=== PATIENT | male | born 1960 | race Caucasian/White ===

== ENCOUNTER → 2018-02-15 09:27 | Outpatient (CLI) | payer BC ==
[~2018-02-15 09:27] MED LIST: ATORVASTATIN TAB 20M; COREG12.5 MG; FENOFIBRATE; FENOGLIDE40 MG PO; HYDRALAZINE HCL50 MG; JANUVIA100 MG; K-DUR20 MEQ; LEVEMIR100 U/M1; LIPITOR20 MG PO; LISINOPRIL TAB 5MG; LISINOPRIL5 MG; LOTREL 10/20 CA1 CAP
[2018-02-26 12:31] VITALS: BMI 36.1
== END | disposition home or self-care (01) ==
LOC: D.US 02-08 10:00
DX: E11.22 Type 2 diabetes mellitus with diabetic chronic kidney disease (principal); I12.9 Hypertensive chronic kidney disease with stage 1 through stage 4 chronic kidney disease, or unspecified chronic kidney disease; N18.4 Chronic kidney disease, stage 4 (severe); Z01.818 Encounter for other preprocedural examination

== ENCOUNTER 2018-02-26 10:34 | Day surgery (SDC) | payer BC ==
[~2018-02-26] VITALS: Ht 170.2 cm; Wt 104.3 kg
--- NOTE | ~2018-02-26 | OP ---
PATIENT NAME: KYLEE WHITE MEDICAL RECORD: [id number] :58 LOCATION:[facility] ADMISSION DATE: SURGEON: SANTANA CUELLO MD DATE OF OPERATION: 02/26/2018 REFERRED BY: Feroz Moffett MD PREOPERATIVE DIAGNOSES: End-stage renal disease. POSTOPERATIVE DIAGNOSES: End-stage renal disease. OPERATION PERFORMED: Creation of a left wrist radiocephalic type Grabiel arterial venous fistula. SURGEON: aSntana Cuello MD ANESTHESIA: Regional block plus general by LMA per CONTROLS TECHNICIAN. PREOPERATIVE NOTE: Mr. White is a very nice 57-year-old white male patient on hemodialysis with a catheter. He needs long-term access. He is a good candidate for a fistula. He is right handed and we plan to create a fistula in the left arm. This will be his first long-term access procedure. DESCRIPTION OF PROCEDURE: Under anesthesia, the patient was prepped and draped in sterile manner. The vasodilatation from his regional block was excellent and I noted immediately a visible palpable cephalic vein at the wrist easily 3.5-4 mm in diameter. I examined him with ultrasound using a proximal venous tourniquet and after applying nitroglycerin paste to the skin of the arm and forearm, the cephalic vein was patent from the wrist to the antecubital space and then up the arm to the cephalic arch. Actually though it drained primarily via a large collateral, drained to the basilic vein at about the mid humeral level. I thought that he would be a good candidate for wrist fistula and possibly rather poor candidate for a brachiocephalic fistula because of the basilic vein and drainage. I made an incision at the wrist longitudinally and exposed the artery and vein. The vein was mobilized and treated with topical papaverine. It was eventually clipped distally and transected and bevelled and flushed with heparinized saline to prepare it for anastomosis. The artery was mobilized with sharp dissection and electrocautery used for hemostasis of very small branches. The artery was controlled proximally and distally with Silastic loops. The artery was opened and flushed proximally and distally with heparinized saline. The arteriotomy about 8 mm in length. The vein was then anastomosed end to side, end of vein to side of artery with running 7-0 Prolene and when the anastomosis was completed and the occluding loops were released, excellent flow was immediately established within the fistula manifested by pulsation and palpable thrill and continuous pulsatile Doppler flow signals. Hemostasis was excellent. The wound was irrigated with Ancef and gentamicin solution. It was closed without the use of a drain approximating subcutaneous tissues with interrupted 3-0 Vicryl and running intracuticular 4-0 Monocryl and Dermabond glue. The wound was dressed with Maxorb Ag, Tegaderm and Cavilon skin prep and the patient taken to the recovery room. OPERATIVE REPORT [id number] KYLEE WHITE Blood loss during the procedure was insignificant and unreplaced. All sponges, instruments, and needles were accounted for. No drain was used. No surgical specimen was submitted for histopathology. PLAN: The patient will be discharged to home this afternoon with a prescription for a small number of Caliente 5/325. He can take one p.o. q.4-6 hours p.r.n. pain. He is to leave the initial operative dressing intact unless it must be changed for some reason. I will plan to take it off when he comes to see me in my office next week. I expect this fistula will mature and that hopefully, he will be able to start having it accessed for dialysis in 6-8 weeks. TRANSINT:[id number] Voice Confirmation ID: [id number] DOCUMENT ID: [id number] SANTANA CUELLO MD at 2012 CC: [id number] DICTATION DATE: 02/26/181718 COATING MACHINE HELPER: 02/26/18 1800 [facility] 02/26/18 [id number] [place] [address]
[2018-02-26 11:29] LABS: BASOPHILS 0.4 % (0-2); EOSINOPHILS 7.2 % (0-7); HEMATOCRIT 31.4 % (42.0-54.0); HEMOGLOBIN 10.1 g/dL (13.5-17.5); IMMATURE GRANULOCYTES 0.1 % (0-5); LYMPHOCYTES 16.6 % (15-50); MCH 28.9 pg (26.0-34.0); MCHC 32.2 g/dL (31.0-37.0); MCV 89.7 fL (80.0-100.0); MEAN PLATELET VOLUME 10.3 fL (7.4-10.4); MONOCYTES 8.1 % (2-11); NEUTROPHILS 67.6 % (40-80); PLATELET COUNT 331 10x3/uL (130-400); RDW 15.5 % (11.5-14.5); WBC 10.2 10x3/uL (4.8-10.8)
[2018-02-26 11:40] LABS: APTT 32.5 SECONDS (22.8-39.4); INR 1.14 (0.85-1.17); PROTIME 14.2 SECONDS (11.6-15.0)
[2018-02-26 11:53] LABS: ANION GAP 15.2 mmol/L (8-16); CARBON DIOXIDE 26.1 mmol/L (21.0-32.0); CREATININE - SERUM 4.4 mg/dL (0.6-1.3); POTASSIUM - SERUM 4.3 mmol/L (3.5-5.1)
[2018-02-26] MEDS ORDERED: LOTREL 10/20 CA1 CAP (12:08)
[2018-02-26] MEDS ORDERED: COREG12.5 MG (12:08)
[2018-02-26] MEDS ORDERED: ATORVASTATIN TAB 20M (12:09)
[2018-02-26] MEDS ORDERED: HYDRALAZINE HCL50 MG (12:10)
[2018-02-26] MEDS ORDERED: K-DUR20 MEQ (12:11)
[2018-02-26] MEDS ORDERED: FENOFIBRATE (12:11)
[2018-02-26] MEDS ORDERED: LEVEMIR100 U/M1 (12:11)
[2018-02-26] MEDS ORDERED: JANUVIA100 MG (12:11)
[2018-02-26] MEDS ORDERED: LISINOPRIL TAB 5MG (12:12)
[2018-02-26] MEDS ORDERED: LIPITOR20 MG PO ×2 (12:13→12:14)
[2018-02-26] MEDS ORDERED: FENOGLIDE40 MG PO (12:15)
[2018-02-26] MEDS ORDERED: LISINOPRIL5 MG (12:16)
[2018-02-26 12:31] VITALS: Ht 170.2 cm; Wt 104.3 kg
== END 2018-02-26 19:10 | disposition home or self-care (01) ==
LOC: D.OPS 10:34
PROVIDERS: Surgery
DX: N18.5 Chronic kidney disease, stage 5 (principal); Z99.2 Dependence on renal dialysis; Z01.812 Encounter for preprocedural laboratory examination

== ENCOUNTER 2018-07-16 00:27 | Inpatient (IN) | payer MEDICARE ==
[~2018-07-16] VITALS: Ht 170.2 cm; Wt 99.0 kg
--- NOTE | ~2018-07-16 | OP ---
PATIENT NAME: KYLEE WHITE MEDICAL RECORD: [id number] :58 LOCATION:D. D.2101 ADMISSION DATE:07/16/18 SURGEON: SANTANA CUELLO MD DATE OF OPERATION: 07/21/2018 PREOPERATIVE DIAGNOSES: End-stage renal disease with methicillin-sensitive Staphylococcus aureus sepsis and positive blood cultures, obstructive sleep apnea, extreme somnolence, possible valvular endocarditis, pulmonary congestion, and fluid overload. POSTOPERATIVE DIAGNOSES: End-stage renal disease with methicillin-sensitive Staphylococcus aureus sepsis and positive blood cultures, obstructive sleep apnea, extreme somnolence, possible valvular endocarditis, pulmonary congestion, and fluid overload. OPERATION PERFORMED: Insertion of a right internal jugular Trialysis acute dialysis catheter done under local anesthesia and with ultrasound and fluoroscopic guidance SAND MIXER was present to help maintain the patient's airway and monitor oxygenation, etc. He administered a very small amount of propofol sedation for the patient at the beginning of the procedure. SURGEON: Santana Cuello MD PREOPERATIVE NOTE: Mr. White is a 57-year-old obese white male patient with end-stage renal disease, who was admitted with methicillin-sensitive Staphylococcus aureus bacteremia and sepsis. Initial improvement in his renal function led to a premature conclusion that he might not require further dialysis and as the tunneled dialysis catheter in the right internal jugular vein was thought to be the source of his sepsis that was removed and not replaced with another dialysis throughout. Over the last several days, the patient's renal function has deteriorated and he needs a reliable IV access as well as dialysis capability. He is brought to the operating room now after several days delay due to OR congestion. I plan to insert a simple Trialysis catheter in the right internal jugular vein. The patient was placed on the operating table in supine position, minimally sedated and monitored, and airway maintained by SAND MIXER. The neck was prepped and draped in sterile manner. Local anesthetic 2% lidocaine without epinephrine was injected into the skin at the base of the neck on the right where ultrasound showed he still has a large patent right internal jugular vein. I made a small incision there at the base of the neck and through that with ultrasound guidance, placed a needle and then a guidewire directly into the internal jugular vein. Under fluoroscopy, the guidewire would not advance into the brachiocephalic vein. It was necessary to use a 0.035 angled Glidewire through the access needle and then I was able to pass the wire into the superior vena cava and on to the right atrium into the inferior vena cava. Then, under fluoroscopy over the wire, I passed dilators and lastly I inserted a 20-cm long Trialysis catheter. All 3 lumens were aspirated, free return of blood confirmed. They were then heparin locked, clamped and capped and the catheter was sutured to the skin at the entry site with 2-0 Prolene. Sterile dressing was applied. The patient was taken to the recovery room. There was no blood loss during the procedure. No specimen was submitted for OPERATIVE REPORT [id number] KYLEE WHITE histopathology. The patient did have a difficult time maintaining his airway and it was difficult to keep him on the table and all in all, this is a difficult procedure and I have realized how ill the patient is, I think that after a period of observation in the recovery room, he should go to ICU this evening. He should have dialysis there in ICU this evening before he goes on for the scheduled pulmonary CTA. He will continue all of the same antibiotics and other medications and other orders per his other physicians. TRANSINT:[id number] Voice Confirmation ID: [id number] DOCUMENT ID: [id number] SANTANA CUELLO MD at 1054 CC: ELISE GRAMAJO [id number] DICTATION DATE: 07/21/181847 [employer]: 07/21/182057 ADM IN [facility] [address] [place] [address]
--- NOTE | ~2018-07-16 | HEMODYNAMI ---
PATIENT:KYLEE WHITE MEDICAL RECORD: [id number] : 58 LOCATION:[facility] D.2101 ADMISSION DATE: 07/16/18 Generatedon:07/28/201813:57 Patient name: KYLEE WHITE Patient #: [id number] SSN: DO B: 1960 Date of study: 07/28/2018 Page: Of Hemodynamic Procedure Report Patient Data Patient Demographics Procedure consent was obtained First Name: KYLEE Gender: Male Last Name: CINDY : 1960 [facility] Initial: P Age: 57 year(s) Patient #: [id number] Race: Unknown Additional ID: [id number] Contact details Address: [address] [place] [address] ST[address]ET State: [place] City: [place] Zip code: [address] Admission Admission Data Admission Date: 07/16/2018 Admission Time: 3:39 Room #: D.2101 Procedure Procedure Types Cath Procedure Diagnostic Procedure ELMER Procedure Description Procedure Date Procedure Date: 07/28/2018 Procedure Start Time: 13:51 Procedure End Time: 13:57 Procedure Staff Name Function Steven Lovell MD Performing Physician Carlos Augustine RT Monitor Cori Rodas RN Nurse Ranjeet Chen RT Clinical Laboratory Director Manas Singh Water Resources Project Manager José Antonio Valdez CRNA Additional personnel Procedure Data Cath Procedure Fluoroscopy Diagnostic fluoroscopy Total fluoroscopy Time: 0 time: 0 min min Diagnostic fluoroscopy Total fluoroscopy dose: 0 dose: 0 mGy mGy Contrast Material Contrast Material Type Amount (ml) Isovue 300 0 Estimated blood loss: 0 ml Procedure Complications No complications Procedure Medications Medication Administration Route Dosage Oxygen etCO2 Nasal cannula 2 l/min unlisted medication Refer to Anesthesia Notes for Sedation Medications Hemodynamics Rest Pre Cath Intra NCS Post Cath Vital Signs Time Heart Resp SPO2 etCO2 NIBP (mmHg) Rhythm Pain Sedation Rate (ipm) (%) (mmHg) Status Level (bpm) 13:41:10 77 14 92 0 175/75(126) NSR 0 (11) 10(A) , No pain 13:45:42 65 14 92 32.3 180/73(125) NSR 0 (11) 10(A) , No pain 13:50:06 65 30 91 0 134/55(102) NSR 0 (11) 9(A) , No pain 13:54:27 65 17 90 30 127/63(86) NSR 0 (11) 9(A) , No pain 13:56:01 59 20 92 27.7 139/61(102) NSR 0 (11) 10(A) , No pain Medications Time Medication Route Dose Verified Delivered Reason Notes Effectiv eness by by 13:45:27 Oxygen etCO2 2 Steven Persaud used for Nasal l/min St Feroz Rodas RN procedure cannula MD 13:46:00 visc. lido gargle Steven Robertson RN, MD 13:46:04 Refer to Steven Persaud Anesthesia St Feroz Rodas RN Notes for MD Sedation Medications Procedure Log Time Note 13:10:44 Carlos Augustine RT(R) sent for patient. Start room use. 13:25:45 Time tracking: Regular hours (M-F 7:00 - 5:00) 13:25:49 Plan of Care:Hemodynamics will remain stable., Cardiac rhythm will remain stable., Comfort level will be maintained., Respiratory function will remain adequate., Patient/ family verbilizes understanding of procedure., Procedure tolerated without complication., Recovers from procedure without complications.. 13:35:10 José Antonio Valdez CRNA present and monitoring patient for TIVA. 13:39:30 Patient received from PCU to CCL 2 Alert and oriented. Tansferred to table in Supine position. 13:39:32 Warm blankets applied, and tess hugger turned on for patient comfort. 13:39:33 Correct patient and procedure confirmed by team. 13:39:46 Signed procedure consent form obtained from patient. 13:39:49 Vital chart was started 13:40:26 Manas [place] Filler Shredder Helper present for ELMER. 13:40:30 Full Disclosure recording started 13:40:40 Pre-procedure instructions explained to patient. 13:40:42 Pre-op teaching completed and patient verbalized understanding. 13:43:53 Family in patients room. 13:43:55 Patient NPO since Midnight. 13:43:57 Is the patient allergic to Iodine/contrast media? No. 13:43:59 Is patient on blood thinner?No 13:44:00 Patient diabetic? Yes. 13:44:01 If diabetic: On Metformin? No 13:44:05 Previous problem with sedation/anesthesia? No ? 13:44:06 Snore? Yes 13:44:07 Sleep apnea? No 13:44:08 Deviated septum? No 13:44:09 Opens mouth fully? Yes 13:44:10 Sticks out tongue? Yes 13:44:12 Airway obstruction? No ? 13:44:13 Dentures? No ? 13:44:22 Patient pain scale 0/10 ?. 13:44:39 IV patent on arrival in Right upper arm with 0.9% NaCl at [facility]. 13:44:42 Lab results completed and on chart. 13:44:44 Alarms reviewed by Perla Poon 13:45:27 Oxygen 2 l/min etCO2 Nasal cannula was administered by Cori Rodas RN; used for procedure; 13:46:00 visc. lido gargle was administered by Cori Rodas RN; ; 13:46:04 Refer to Anesthesia Notes for Sedation Medications was administered by Cori Rodas RN; ; 13:46:32 --------ALL STOP TIME OUT------ 13:46:33 Final Timeout: patient, procedure, and site verified with staff and physician. All members of the team are in agreement. 13:46:43 Physical assessment completed. ASA score P 4 - A patient with severe systemic disease that is a constant threat to life as per Steven Lovell MD. 13:46:47 Sedation plan: TIVA Medication:Propofol 13:47:44 Procedure started. 13:47:45 ELMER started. 13:51:06 ELMER completed. 13:51:44 Procedure ended.(Physican Out) 13:52:20 Fluoroscopy time 00.00 minutes. 13:52:21 Fluoroscopy dose: 0 mGy 13:52:21 Flurop Dose total: 0 13:52:23 Contrast amount:Isovue 300 0ml. 13:52:50 Post-procedure physical assessment completed. ASA score P 4 - A patient with severe systemic disease that is a constant threat to life as per Steven Lovell MD. 13:53:02 Post procedure rhythm: unchanged. 13:53:04 Estimated blood loss: 0 ml 13:53:06 Post procedure instruction explained to patient.Patient verbalizes understanding. 13:53:07 Patient needs reinforcement of post procedure teaching. 13:53:14 Procedure and supply charges have been captured, reviewed, submitted and are correct. 13:53:17 Procedure Complication : No complications 13:56:58 Vital chart was stopped 13:56:59 See physician's report for complete and final results. 13:57:01 Report given to PCU. 13:57:04 Patient transfered to PCU with Bed. 13:57:06 Procedure ended. 13:57:06 Full Disclosure recording stopped 13:57:09 End room use (Document Last) Signature Audit [place] Stage Time Signature Unsigned Intra-Procedure 07/28/2018 Carlos Augustine 1:57:27 PM RT(R) Signatures Monitor : Carlos Augustine RT Signature : Date : Time : [address] [address]
--- NOTE | ~2018-07-16 | OP ---
PATIENT NAME: KYLEE WHITE MEDICAL RECORD: [id number] :58 LOCATION:D. D.2101 ADMISSION DATE:07/16/18 SURGEON: SANTANA CUELLO MD DATE OF OPERATION: 08/03/2018 PREOPERATIVE DIAGNOSES: End-stage renal disease and dependence on hemodialysis with recent bacteremia and development of acute bacterial endocarditis with methicillin-sensitive Staphylococcus aureus and more recently prolonged oozing and bleeding from Trialysis catheter insertion site in the right internal jugular vein. POSTOPERATIVE DIAGNOSES: End-stage renal disease and dependence on hemodialysis with recent bacteremia and development of acute bacterial endocarditis with methicillin-sensitive Staphylococcus aureus and more recently prolonged oozing and bleeding from Trialysis catheter insertion site in the right internal jugular vein. OPERATION PERFORMED: Removal of Trialysis and insertion of a right internal jugular HemoSplit tunneled dialysis catheter, HemoSplit 23 cm in length. SURGEON: Santana Cuello MD ANESTHESIA: Monitoring per SOLID WASTE FACILITY SUPERVISOR and local 2% lidocaine without epinephrine. PREOPERATIVE NOTE: Mr. Daileys bacteremia has cleared and we are now going to remove the Trialysis catheter, which has been problematic and place a new HemoSplit. He remains on scheduled antibiotic therapy and will be for the next month or so. DESCRIPTION OF PROCEDURE: The patient was prepped and draped in sterile manner and local anesthetic infiltrated into the skin and subcutaneous tissues as needed. The Trialysis catheter site was cleansed and anesthetized and the incision extended medially and laterally after which the Trialysis catheter was removed over a guidewire and under fluoroscopy the guidewire was placed in the inferior vena cava. Over that, I inserted a dilator peel-away sheath. I made an entry site for the HemoSplit catheter beneath the clavicle and pulled the 23-cm HemoSplit through a subcutaneous tunnel and inserted it through the peelaway sheath as it was removed. The catheter positioning was very satisfactory. Both lumens were accessed and aspirated, free return of blood confirmed. They were then flushed with heparin and saline solution and then hep-locked. The catheter was sutured to the skin near the exit site with 2-0 Prolene. In order to prevent postoperative oozing and bleeding for the first few days, I placed a simple 4-0 Prolene suture to snug up and close the exit site around the catheter. It was very important that this suture be removed and not allowed to remain indefinitely and cause tissue necrosis. I also placed 2 simple 4-0 Prolene sutures to close the cervical incision after an inverted 3-0 Vicryl. Again, this was in hopes of maintaining good hemostasis and these 2 Prolene sutures need to be removed in the next 5 to 7 days. The exit site was dressed with a chlorhexidine Biopatch and a standard CVL dressing, and the skin incision was dressed with Maxorb AG and Tegaderm with Cavilon skin prep. TRANSINT:[id number] Voice Confirmation ID: [id number] DOCUMENT ID: [id number] OPERATIVE REPORT [id number] KYLEE WHITE JAMES MD at 1753 CC: ELISE GRAMAJO and SHARA BROWN MD [id number] DICTATION DATE: 08/03/18 0957 COMPUTER ASSEMBLER: 08/03/18 1022 DIS IN 08/05/18 [facility] [address] [place] [address]
--- NOTE | ~2018-07-16 | OP ---
PATIENT NAME: KYLEE WHITE MEDICAL RECORD: [id number] :58 LOCATION:D.M2 D.2101 ADMISSION DATE:07/16/18 SURGEON: RAIN LAIRD MD DATE OF OPERATION: 07/28/2018 After general sedation via anesthesia via TIVA, a transesophageal Omniplane probe placed into the esophagus and proximal stomach without difficulty. FINDINGS: LVH is present. LV internal dimension is normal, wall motion normal. EF is greater than or equal to 55%. The aortic valve is tricuspid with previously described vegetation. This appears to be organized in an appropriate fashion. No significant AI is noted. No evidence of perivalvular abnormalities noted. Left atrium appears normal. Mitral valve appears normal with trivial MR only. Right-sided chambers were grossly normal. Trivial tricuspid regurgitation only. TRANSINT:[id number] Voice Confirmation ID: [id number] DOCUMENT ID: [id number] RAIN LAIRD MD at 0843 CC: [id number] DICTATION DATE: 07/28/18 1357 INSPECTOR AND MENDER: 07/28/18 1411 DIS IN 08/05/18 [facility] [address] [place] [address]
[~2018-07-16 00:27] MED LIST changes: -COREG12.5 MG; +COREG12.5 MG PO; -HYDRALAZINE HCL50 MG; +HYDRALAZINE HCL50 MG PO; -JANUVIA100 MG; +JANUVIA100 MG PO; -K-DUR20 MEQ; +K-DUR20 MEQ PO; -LEVEMIR100 U/M1; +LEVEMIR100 U/M1 SC; -LOTREL 10/20 CA1 CAP; +LOTREL 10/20 CA1 CAP PO
[2018-07-16] MEDS ORDERED: LIPITOR20 MG PO (03:56)
[2018-07-16] MEDS ORDERED: ASPIRIN325 MG PO (04:00)
[2018-07-16] MEDS ORDERED: FISH OIL 1,2001 CAP PO (04:01)
[2018-07-16] MEDS ORDERED: HUMALOG 30100 UNITS/ SC (04:02)
[2018-07-16 05:46] VITALS: BP 168/68
[2018-07-16 05:57] VITALS: BP 168/68; BMI 35.3
[2018-07-16 08:22] VITALS: BP 150/75
[2018-07-16 08:56] LABS: ANION GAP 11.1 mmol/L (8-16); CARBON DIOXIDE 29.6 mmol/L (21.0-32.0); CREATININE - SERUM 4.5 mg/dL (0.6-1.3); POTASSIUM - SERUM 3.7 mmol/L (3.5-5.1)
[2018-07-16 09:00] LABS: BASOPHILS 0.2 % (0-2); EOSINOPHILS 0.1 % (0-7); HEMATOCRIT 27.6 % (42.0-54.0); HEMOGLOBIN 8.9 g/dL (13.5-17.5); IMMATURE GRANULOCYTES 0.4 % (0-5); MCH 29.6 pg (26.0-34.0); MCHC 32.2 g/dL (31.0-37.0); MCV 91.7 fL (80.0-100.0); MEAN PLATELET VOLUME 10.8 fL (7.4-10.4); MONOCYTES 5.8 % (2-11); NEUTROPHILS 89.5 % (40-80); RBC 3.01 10x6/uL (4.20-6.10); RDW 14.6 % (11.5-14.5)
[2018-07-16 09:01] LABS: PLATELET COUNT 161 10x3/uL (130-400)
[2018-07-16 11:04] VITALS: BP 101/49
[2018-07-16 11:22] VITALS: Ht 170.2 cm; Wt 99.0 kg
[2018-07-16 14:31] VITALS: BP 106/48
[2018-07-16 20:54] VITALS: BP 117/55
[2018-07-16 22:52] LABS: BASOPHILS 0.1 % (0-2); EOSINOPHILS 0 % (0-7); HEMATOCRIT 27.2 % (42.0-54.0); IMMATURE GRANULOCYTES 1.7 % (0-5); LYMPHOCYTES 5.9 % (15-50); MCH 30.2 pg (26.0-34.0); MCHC 33.1 g/dL (31.0-37.0); MCV 91.3 fL (80.0-100.0); MEAN PLATELET VOLUME 10.8 fL (7.4-10.4); MONOCYTES 6.7 % (2-11); NEUTROPHILS 85.6 % (40-80); PLATELET COUNT 151 10x3/uL (130-400); RBC 2.98 10x6/uL (4.20-6.10); RDW 14.6 % (11.5-14.5)
[2018-07-17 01:12] VITALS: BP 93/43
[2018-07-17 05:57] VITALS: BP 106/61
[2018-07-17 07:05] LABS: BASOPHILS 0.1 % (0-2); EOSINOPHILS 0.1 % (0-7); HEMATOCRIT 25.1 % (42.0-54.0); HEMOGLOBIN 8.3 g/dL (13.5-17.5); IMMATURE GRANULOCYTES 0.5 % (0-5); LYMPHOCYTES 5.6 % (15-50); MCH 30.2 pg (26.0-34.0); MCHC 33.1 g/dL (31.0-37.0); MCV 91.3 fL (80.0-100.0); MEAN PLATELET VOLUME 10.9 fL (7.4-10.4); MONOCYTES 6.8 % (2-11); NEUTROPHILS 86.9 % (40-80); PLATELET COUNT 142 10x3/uL (130-400); RBC 2.75 10x6/uL (4.20-6.10); RDW 14.9 % (11.5-14.5)
[2018-07-17 07:23] LABS: ANION GAP 12.9 mmol/L (8-16); CALCIUM 7.8 mg/dL (8.5-10.1); CARBON DIOXIDE 27.9 mmol/L (21.0-32.0); CREATININE - SERUM 5.8 mg/dL (0.6-1.3); PHOSPHOROUS 5.7 mg/dL (2.5-4.9); POTASSIUM - SERUM 3.8 mmol/L (3.5-5.1); VANCOMYCIN - RANDOM 15.9 ug/mL (10.0-20.0); WBC 10.9 10x3/uL (4.8-10.8)
[2018-07-17 08:03] VITALS: BP 114/68
[2018-07-17 08:58] VITALS: BP 155/61
[2018-07-17 16:24] LABS: CREATININE - URINE 162.8 mg/dL (30-125)
[2018-07-17 17:29] VITALS: BP 107/59
[2018-07-17 19:58] VITALS: BP 125/68
[2018-07-18 00:39] VITALS: BP 130/62
[2018-07-18 05:20] VITALS: BP 125/59
[2018-07-18 06:00] LABS: BASOPHILS 0.2 % (0-2); EOSINOPHILS 0.1 % (0-7); HEMATOCRIT 25.8 % (42.0-54.0); HEMOGLOBIN 8.4 g/dL (13.5-17.5); IMMATURE GRANULOCYTES 0.9 % (0-5); LYMPHOCYTES 7.6 % (15-50); MCH 29.4 pg (26.0-34.0); MCHC 32.6 g/dL (31.0-37.0); MCV 90.2 fL (80.0-100.0); MONOCYTES 6.8 % (2-11); NEUTROPHILS 84.4 % (40-80); PLATELET COUNT 132 10x3/uL (130-400); RBC 2.86 10x6/uL (4.20-6.10); RDW 14.8 % (11.5-14.5); WBC 12.1 10x3/uL (4.8-10.8)
[2018-07-18 06:18] LABS: ANION GAP 14.5 mmol/L (8-16); CALCIUM 7.7 mg/dL (8.5-10.1); CARBON DIOXIDE 24.1 mmol/L (21.0-32.0); CREATININE - SERUM 5.9 mg/dL (0.6-1.3); PHOSPHOROUS 5.2 mg/dL (2.5-4.9); POTASSIUM - SERUM 3.6 mmol/L (3.5-5.1); VANCOMYCIN - RANDOM 12.7 ug/mL (10.0-20.0)
[2018-07-18 08:47] VITALS: BP 149/62
[2018-07-18 12:50] VITALS: BP 134/56; BP 177/63
[2018-07-18 16:13] VITALS: BP 108/50
[2018-07-18 20:46] VITALS: BP 113/44
[2018-07-19 01:19] VITALS: BP 116/45
[2018-07-19 04:04] LABS: BASOPHILS 0.1 % (0-2); EOSINOPHILS 0.2 % (0-7); HEMATOCRIT 24.7 % (42.0-54.0); HEMOGLOBIN 8.2 g/dL (13.5-17.5); IMMATURE GRANULOCYTES 0.6 % (0-5); LYMPHOCYTES 5.8 % (15-50); MCH 29.6 pg (26.0-34.0); MCHC 33.2 g/dL (31.0-37.0); MCV 89.2 fL (80.0-100.0); MEAN PLATELET VOLUME 10.9 fL (7.4-10.4); MONOCYTES 7.9 % (2-11); NEUTROPHILS 85.4 % (40-80); PLATELET COUNT 145 10x3/uL (130-400); RBC 2.77 10x6/uL (4.20-6.10); RDW 14.8 % (11.5-14.5); WBC 13.5 10x3/uL (4.8-10.8)
[2018-07-19 04:48] LABS: ANION GAP 14.1 mmol/L (8-16); CALCIUM 7.6 mg/dL (8.5-10.1); CARBON DIOXIDE 23.5 mmol/L (21.0-32.0); CREATININE - SERUM 5.8 mg/dL (0.6-1.3); PHOSPHOROUS 5.6 mg/dL (2.5-4.9); POTASSIUM - SERUM 3.6 mmol/L (3.5-5.1); VANCOMYCIN - RANDOM 18.2 ug/mL (10.0-20.0)
[2018-07-19 05:05] VITALS: BP 125/55
[2018-07-19 11:41] VITALS: BP 126/55
[2018-07-19 15:47] VITALS: BP 133/69
[2018-07-19 21:28] VITALS: BP 134/64
[2018-07-20 05:29] VITALS: BP 118/59
[2018-07-20 07:07] LABS: BASOPHILS 0.1 % (0-2); EOSINOPHILS 0.8 % (0-7); HEMATOCRIT 24.4 % (42.0-54.0); HEMOGLOBIN 8.2 g/dL (13.5-17.5); LYMPHOCYTES 6.5 % (15-50); MCH 29.6 pg (26.0-34.0); MCHC 33.6 g/dL (31.0-37.0); MCV 88.1 fL (80.0-100.0); MEAN PLATELET VOLUME 11.4 fL (7.4-10.4); NEUTROPHILS 81.6 % (40-80); PLATELET COUNT 167 10x3/uL (130-400); RBC 2.77 10x6/uL (4.20-6.10); RDW 14.6 % (11.5-14.5); WBC 10.2 10x3/uL (4.8-10.8)
[2018-07-20 07:13] LABS: CALCIUM 7.4 mg/dL (8.5-10.1); CARBON DIOXIDE 22.2 mmol/L (21.0-32.0); CREATININE - SERUM 5.7 mg/dL (0.6-1.3); PHOSPHOROUS 4.6 mg/dL (2.5-4.9); POTASSIUM - SERUM 3.2 mmol/L (3.5-5.1); VANCOMYCIN - RANDOM 13.3 ug/mL (10.0-20.0)
[2018-07-20 13:06] VITALS: BP 131/61
[2018-07-20 20:33] VITALS: BP 149/67
[2018-07-21 05:38] VITALS: BP 131/57
[2018-07-21 05:53] LABS: BASOPHILS 0.2 % (0-2); EOSINOPHILS 1.4 % (0-7); HEMATOCRIT 24.1 % (42.0-54.0); HEMOGLOBIN 8.3 g/dL (13.5-17.5); IMMATURE GRANULOCYTES 1.4 % (0-5); LYMPHOCYTES 7.2 % (15-50); MCH 29.5 pg (26.0-34.0); MCHC 34.4 g/dL (31.0-37.0); MONOCYTES 13.7 % (2-11); NEUTROPHILS 76.1 % (40-80); RBC 2.81 10x6/uL (4.20-6.10); RDW 14.8 % (11.5-14.5); WBC 12.4 10x3/uL (4.8-10.8)
[2018-07-21 06:13] LABS: ANION GAP 14.7 mmol/L (8-16); CALCIUM 7.6 mg/dL (8.5-10.1); CARBON DIOXIDE 21.2 mmol/L (21.0-32.0); CREATININE - SERUM 6.2 mg/dL (0.6-1.3); PHOSPHOROUS 5.3 mg/dL (2.5-4.9); VANCOMYCIN - RANDOM 11.1 ug/mL (10.0-20.0)
[2018-07-21 06:15] LABS: POTASSIUM - SERUM 2.9 mmol/L (3.5-5.1)
[2018-07-21 06:16] LABS: MCV 85.8 fL (80.0-100.0); PLATELET COUNT 217 10x3/uL (130-400)
[2018-07-21 14:48] VITALS: BP 127/68
[2018-07-21 20:00] VITALS: BP 170/89
[2018-07-21 21:00] VITALS: BP 125/69
[2018-07-21 22:00] VITALS: BP 130/81
[2018-07-21 23:00] VITALS: BP 136/76
[2018-07-22] VITALS (22 sets, daily range): BP systolic 114–168; BP diastolic 61–86
[2018-07-22 00:44] LABS: ANION GAP 13.3 mmol/L (8-16); CALCIUM 8.1 mg/dL (8.5-10.1); CARBON DIOXIDE 25.9 mmol/L (21.0-32.0); POTASSIUM - SERUM 3.2 mmol/L (3.5-5.1)
[2018-07-22 00:46] LABS: CREATININE - SERUM 4.3 mg/dL (0.6-1.3)
[2018-07-22 05:32] LABS: BASOPHILS 0.2 % (0-2); EOSINOPHILS 0.4 % (0-7); HEMATOCRIT 23.5 % (42.0-54.0); IMMATURE GRANULOCYTES 0.9 % (0-5); LYMPHOCYTES 9.2 % (15-50); MCH 29.4 pg (26.0-34.0); MCV 86.4 fL (80.0-100.0); MEAN PLATELET VOLUME 10.4 fL (7.4-10.4); MONOCYTES 6.8 % (2-11); NEUTROPHILS 82.5 % (40-80); PLATELET COUNT 260 10x3/uL (130-400); RBC 2.72 10x6/uL (4.20-6.10)
[2018-07-22 05:34] LABS: WBC 16.7 10x3/uL (4.8-10.8)
[2018-07-22 05:39] LABS: ALBUMIN 1.7 g/dL (3.4-5.0); ANION GAP 14.8 mmol/L (8-16); BILIRUBIN - TOTAL 1.25 mg/dL (0.2-1.3); CALCIUM 7.9 mg/dL (8.5-10.1); CARBON DIOXIDE 24.6 mmol/L (21.0-32.0); CREATININE - SERUM 4.8 mg/dL (0.6-1.3); POTASSIUM - SERUM 3.4 mmol/L (3.5-5.1); PROTEIN - SERUM 6.9 g/dL (6.4-8.2); VANCOMYCIN - RANDOM 7.6 ug/mL (10.0-20.0)
[2018-07-23] VITALS (17 sets, daily range): BP systolic 134–187; BP diastolic 62–89
[2018-07-23 04:15] LABS: BASOPHILS 0.1 % (0-2); EOSINOPHILS 1.9 % (0-7); HEMOGLOBIN 7.8 g/dL (13.5-17.5); IMMATURE GRANULOCYTES 1.3 % (0-5); LYMPHOCYTES 6.3 % (15-50); MCH 29.7 pg (26.0-34.0); MCHC 33.9 g/dL (31.0-37.0); MCV 87.5 fL (80.0-100.0); MEAN PLATELET VOLUME 9.7 fL (7.4-10.4); MONOCYTES 8.5 % (2-11); NEUTROPHILS 81.9 % (40-80); PLATELET COUNT 222 10x3/uL (130-400); RBC 2.63 10x6/uL (4.20-6.10); RDW 15.1 % (11.5-14.5); WBC 15.8 10x3/uL (4.8-10.8)
[2018-07-23 04:36] LABS: ALBUMIN 1.7 g/dL (3.4-5.0); BILIRUBIN - TOTAL 0.96 mg/dL (0.2-1.3); CALCIUM 7.5 mg/dL (8.5-10.1); CARBON DIOXIDE 30.2 mmol/L (21.0-32.0); CREATININE - SERUM 3.9 mg/dL (0.6-1.3); MAGNESIUM - SERUM 2.6 mg/dL (1.8-2.4); PHOSPHOROUS 4.6 mg/dL (2.5-4.9); POTASSIUM - SERUM 3.2 mmol/L (3.5-5.1); PROTEIN - SERUM 6.8 g/dL (6.4-8.2)
[2018-07-23 18:01] LABS: INR 1.21 (0.85-1.17); PROTIME 14.9 SECONDS (11.6-15.0)
[2018-07-24 01:25] VITALS: BP 143/60
[2018-07-24 05:03] VITALS: BP 138/69
[2018-07-24 05:52] LABS: BASOPHILS 0.1 % (0-2); EOSINOPHILS 2.4 % (0-7); IMMATURE GRANULOCYTES 1.4 % (0-5); LYMPHOCYTES 7.3 % (15-50); MCHC 32.3 g/dL (31.0-37.0); MEAN PLATELET VOLUME 10.4 fL (7.4-10.4); MONOCYTES 9.3 % (2-11); NEUTROPHILS 79.5 % (40-80); PLATELET COUNT 239 10x3/uL (130-400); RBC 2.45 10x6/uL (4.20-6.10); RDW 15.5 % (11.5-14.5); WBC 15.3 10x3/uL (4.8-10.8)
[2018-07-24 05:56] LABS: HEMOGLOBIN 7.1 g/dL (13.5-17.5); MCV 89.8 fL (80.0-100.0)
[2018-07-24 06:56] LABS: ALBUMIN 1.7 g/dL (3.4-5.0); ANION GAP 13.3 mmol/L (8-16); BILIRUBIN - TOTAL 1.08 mg/dL (0.2-1.3); CALCIUM 7.4 mg/dL (8.5-10.1); CARBON DIOXIDE 26.3 mmol/L (21.0-32.0); CREATININE - SERUM 3.9 mg/dL (0.6-1.3); MAGNESIUM - SERUM 2.7 mg/dL (1.8-2.4); POTASSIUM - SERUM 3.6 mmol/L (3.5-5.1); PROTEIN - SERUM 6.4 g/dL (6.4-8.2)
[2018-07-24 07:00] LABS: INR 1.08 (0.85-1.17); PROTIME 13.6 SECONDS (11.6-15.0)
[2018-07-24 08:41] VITALS: BP 150/62
[2018-07-24 12:39] VITALS: BP 146/70
[2018-07-24 20:01] VITALS: BP 139/68
[2018-07-25 00:45] VITALS: BP 146/69
[2018-07-25 05:40] VITALS: BP 153/67
[2018-07-25 05:44] LABS: BASOPHILS 0.1 % (0-2); EOSINOPHILS 2.2 % (0-7); HEMOGLOBIN 8.6 g/dL (13.5-17.5); IMMATURE GRANULOCYTES 0.8 % (0-5); LYMPHOCYTES 7.3 % (15-50); MCH 29.4 pg (26.0-34.0); MCHC 33.1 g/dL (31.0-37.0); MCV 88.7 fL (80.0-100.0); MEAN PLATELET VOLUME 10.7 fL (7.4-10.4); MONOCYTES 10.8 % (2-11); NEUTROPHILS 78.8 % (40-80); PLATELET COUNT 224 10x3/uL (130-400); RBC 2.93 10x6/uL (4.20-6.10); RDW 15.3 % (11.5-14.5); WBC 15.9 10x3/uL (4.8-10.8)
[2018-07-25 06:39] LABS: ALBUMIN 1.8 g/dL (3.4-5.0); ANION GAP 9.9 mmol/L (8-16); CALCIUM 7.3 mg/dL (8.5-10.1); CARBON DIOXIDE 31.5 mmol/L (21.0-32.0); CREATININE - SERUM 3.1 mg/dL (0.6-1.3); POTASSIUM - SERUM 3.4 mmol/L (3.5-5.1); PROTEIN - SERUM 6.7 g/dL (6.4-8.2)
[2018-07-25 08:04] VITALS: BP 207/80
[2018-07-25 11:31] VITALS: BP 190/67
[2018-07-25 16:12] VITALS: BP 201/82
[2018-07-25 20:38] VITALS: BP 168/79
[2018-07-26 01:31] VITALS: BP 165/71
[2018-07-26 04:52] LABS: BASOPHILS 0.1 % (0-2); EOSINOPHILS 0.9 % (0-7); HEMATOCRIT 24.3 % (42.0-54.0); HEMOGLOBIN 8.2 g/dL (13.5-17.5); IMMATURE GRANULOCYTES 0.8 % (0-5); LYMPHOCYTES 11.1 % (15-50); MCHC 33.7 g/dL (31.0-37.0); MEAN PLATELET VOLUME 9.7 fL (7.4-10.4); MONOCYTES 5.1 % (2-11); PLATELET COUNT 195 10x3/uL (130-400); RBC 2.73 10x6/uL (4.20-6.10); RDW 15.3 % (11.5-14.5)
[2018-07-26 05:09] LABS: ALBUMIN 1.6 g/dL (3.4-5.0); ANION GAP 8.1 mmol/L (8-16); BILIRUBIN - TOTAL 1.14 mg/dL (0.2-1.3); CALCIUM 7.8 mg/dL (8.5-10.1); CARBON DIOXIDE 31.5 mmol/L (21.0-32.0); CREATININE - SERUM 3.4 mg/dL (0.6-1.3); PHOSPHOROUS 5.3 mg/dL (2.5-4.9); POTASSIUM - SERUM 3.6 mmol/L (3.5-5.1); PROTEIN - SERUM 7.1 g/dL (6.4-8.2)
[2018-07-26 06:12] VITALS: BP 189/72
[2018-07-26 07:50] VITALS: BP 147/71
[2018-07-26 11:06] VITALS: BP 160/74
[2018-07-26 16:09] VITALS: BP 123/81
[2018-07-26 20:00] VITALS: BP 159/61
[2018-07-27] VITALS: BP 199/83
[2018-07-27 04:00] VITALS: BP 142/64
[2018-07-27 04:37] LABS: BASOPHILS 0.1 % (0-2); EOSINOPHILS 1.4 % (0-7); HEMATOCRIT 24.2 % (42.0-54.0); HEMOGLOBIN 7.8 g/dL (13.5-17.5); IMMATURE GRANULOCYTES 0.6 % (0-5); LYMPHOCYTES 10.4 % (15-50); MCH 29.1 pg (26.0-34.0); MCHC 32.2 g/dL (31.0-37.0); MCV 90.3 fL (80.0-100.0); MEAN PLATELET VOLUME 10.3 fL (7.4-10.4); MONOCYTES 7.9 % (2-11); NEUTROPHILS 79.6 % (40-80); PLATELET COUNT 227 10x3/uL (130-400); RBC 2.68 10x6/uL (4.20-6.10); RDW 15.3 % (11.5-14.5); WBC 15.2 10x3/uL (4.8-10.8)
[2018-07-27 04:56] LABS: ALBUMIN 1.6 g/dL (3.4-5.0); ANION GAP 11.5 mmol/L (8-16); CARBON DIOXIDE 29.4 mmol/L (21.0-32.0); CREATININE - SERUM 3.5 mg/dL (0.6-1.3); POTASSIUM - SERUM 3.9 mmol/L (3.5-5.1); PROTEIN - SERUM 7.2 g/dL (6.4-8.2)
[2018-07-27 08:57] VITALS: BP 139/66
[2018-07-27 15:19] VITALS: BP 120/60
[2018-07-27 20:00] VITALS: BP 135/71
[2018-07-28] VITALS: BP 139/58
[2018-07-28 04:00] VITALS: BP 174/77
[2018-07-28 07:06] LABS: BASOPHILS 0.2 % (0-2); EOSINOPHILS 1.5 % (0-7); HEMATOCRIT 22.6 % (42.0-54.0); IMMATURE GRANULOCYTES 0.5 % (0-5); LYMPHOCYTES 8.5 % (15-50); MCH 29.7 pg (26.0-34.0); MCHC 32.7 g/dL (31.0-37.0); MCV 90.8 fL (80.0-100.0); MEAN PLATELET VOLUME 10.2 fL (7.4-10.4); MONOCYTES 14.7 % (2-11); NEUTROPHILS 74.6 % (40-80); PLATELET COUNT 251 10x3/uL (130-400); RBC 2.49 10x6/uL (4.20-6.10); WBC 12.8 10x3/uL (4.8-10.8)
[2018-07-28 07:11] LABS: HEMOGLOBIN 7.4 g/dL (13.5-17.5)
[2018-07-28 07:39] LABS: ALBUMIN 1.6 g/dL (3.4-5.0); ANION GAP 11.3 mmol/L (8-16); BILIRUBIN - TOTAL 0.9 mg/dL (0.2-1.3); CALCIUM 7.9 mg/dL (8.5-10.1); CARBON DIOXIDE 29.3 mmol/L (21.0-32.0); CREATININE - SERUM 3.5 mg/dL (0.6-1.3); PHOSPHOROUS 5.1 mg/dL (2.5-4.9); POTASSIUM - SERUM 3.6 mmol/L (3.5-5.1); PROTEIN - SERUM 7.5 g/dL (6.4-8.2)
[2018-07-28 08:11] VITALS: BP 145/71
[2018-07-28 11:50] VITALS: BP 156/68
[2018-07-28 15:05] VITALS: BP 145/74
[2018-07-28 20:00] VITALS: BP 165/73
[2018-07-29 04:00] VITALS: BP 191/86
[2018-07-29 06:02] LABS: BASOPHILS 0.2 % (0-2); EOSINOPHILS 1.3 % (0-7); HEMATOCRIT 25.3 % (42.0-54.0); HEMOGLOBIN 8.1 g/dL (13.5-17.5); IMMATURE GRANULOCYTES 0.8 % (0-5); LYMPHOCYTES 8.4 % (15-50); MCV 90.7 fL (80.0-100.0); MEAN PLATELET VOLUME 10.3 fL (7.4-10.4); MONOCYTES 15.9 % (2-11); NEUTROPHILS 73.4 % (40-80); PLATELET COUNT 251 10x3/uL (130-400); RBC 2.79 10x6/uL (4.20-6.10); RDW 14.7 % (11.5-14.5); WBC 10.3 10x3/uL (4.8-10.8)
[2018-07-29 06:20] LABS: ALBUMIN 1.6 g/dL (3.4-5.0); BILIRUBIN - TOTAL 0.88 mg/dL (0.2-1.3); CALCIUM 8.1 mg/dL (8.5-10.1); CARBON DIOXIDE 27.7 mmol/L (21.0-32.0); CREATININE - SERUM 3.7 mg/dL (0.6-1.3); POTASSIUM - SERUM 3.7 mmol/L (3.5-5.1); PROTEIN - SERUM 7.4 g/dL (6.4-8.2)
[2018-07-29 08:19] VITALS: BP 135/98
[2018-07-29 15:22] VITALS: BP 169/75
[2018-07-29 20:00] VITALS: BP 111/66
[2018-07-30 04:00] VITALS: BP 130/66
[2018-07-30 06:44] LABS: ALBUMIN 1.6 g/dL (3.4-5.0); ANION GAP 12.5 mmol/L (8-16); BILIRUBIN - TOTAL 0.89 mg/dL (0.2-1.3); CALCIUM 8.5 mg/dL (8.5-10.1); CARBON DIOXIDE 28.4 mmol/L (21.0-32.0); CREATININE - SERUM 3.8 mg/dL (0.6-1.3); PHOSPHOROUS 5.7 mg/dL (2.5-4.9); POTASSIUM - SERUM 3.9 mmol/L (3.5-5.1); PROTEIN - SERUM 7.7 g/dL (6.4-8.2)
[2018-07-30 07:25] LABS: HEMOGLOBIN 7.9 g/dL (13.5-17.5); LYMPHOCYTES 11.6 % (15-50); MCH 30.2 pg (26.0-34.0); MCHC 32.9 g/dL (31.0-37.0); MCV 91.6 fL (80.0-100.0); NEUTROPHILS 71.1 % (40-80); PLATELET COUNT 275 10x3/uL (130-400); RBC 2.62 10x6/uL (4.20-6.10); RDW 14.4 % (11.5-14.5)
[2018-07-30 09:30] VITALS: BP 124/67
[2018-07-30 12:56] VITALS: BP 136/70
[2018-07-30 14:01] LABS: APTT 40.2 SECONDS (22.8-39.4); INR 1.24 (0.85-1.17); PROTIME 15.2 SECONDS (11.6-15.0)
[2018-07-30 20:39] VITALS: BP 141/51
[2018-07-31 04:00] VITALS: BP 138/58
[2018-07-31 05:52] LABS: BASOPHILS 0.3 % (0-2); EOSINOPHILS 1.1 % (0-7); HEMATOCRIT 21.6 % (42.0-54.0); IMMATURE GRANULOCYTES 0.3 % (0-5); LYMPHOCYTES 10.9 % (15-50); MCH 29.8 pg (26.0-34.0); MCHC 32.4 g/dL (31.0-37.0); MCV 91.9 fL (80.0-100.0); MEAN PLATELET VOLUME 9.1 fL (7.4-10.4); MONOCYTES 13.4 % (2-11); PLATELET COUNT 243 10x3/uL (130-400); RBC 2.35 10x6/uL (4.20-6.10); RDW 14.8 % (11.5-14.5); WBC 10.6 10x3/uL (4.8-10.8)
[2018-07-31 07:45] VITALS: BP 130/72
[2018-07-31 08:00] LABS: ALBUMIN 1.6 g/dL (3.4-5.0); ANION GAP 13.8 mmol/L (8-16); BILIRUBIN - TOTAL 0.75 mg/dL (0.2-1.3); CALCIUM 8.1 mg/dL (8.5-10.1); CARBON DIOXIDE 25.7 mmol/L (21.0-32.0); CREATININE - SERUM 4.3 mg/dL (0.6-1.3); POTASSIUM - SERUM 3.5 mmol/L (3.5-5.1); PROTEIN - SERUM 7.4 g/dL (6.4-8.2)
[2018-07-31 15:09] VITALS: BP 163/69
[2018-07-31 20:00] VITALS: BP 139/67
[2018-08-01] VITALS: BP 163/65
[2018-08-01 04:00] VITALS: BP 163/62
[2018-08-01 07:00] VITALS: BP 186/90
[2018-08-01 07:28] LABS: BASOPHILS 0.2 % (0-2); IMMATURE GRANULOCYTES 0.3 % (0-5); LYMPHOCYTES 11.2 % (15-50); MCH 29.8 pg (26.0-34.0); MCHC 32.7 g/dL (31.0-37.0); MCV 91.2 fL (80.0-100.0); MEAN PLATELET VOLUME 9.6 fL (7.4-10.4); MONOCYTES 13.7 % (2-11); NEUTROPHILS 73.6 % (40-80); PLATELET COUNT 290 10x3/uL (130-400); RDW 14.3 % (11.5-14.5)
[2018-08-01 07:40] LABS: HEMOGLOBIN 8.5 g/dL (13.5-17.5); RBC 2.85 10x6/uL (4.20-6.10)
[2018-08-01 07:54] LABS: ALBUMIN 1.7 g/dL (3.4-5.0); ANION GAP 12.7 mmol/L (8-16); BILIRUBIN - TOTAL 0.81 mg/dL (0.2-1.3); CALCIUM 8.5 mg/dL (8.5-10.1); CARBON DIOXIDE 27.8 mmol/L (21.0-32.0); CREATININE - SERUM 3.4 mg/dL (0.6-1.3); PHOSPHOROUS 4.3 mg/dL (2.5-4.9); POTASSIUM - SERUM 3.5 mmol/L (3.5-5.1)
[2018-08-01 12:00] VITALS: BP 124/74
[2018-08-01 14:59] VITALS: BP 113/71
[2018-08-01 20:00] VITALS: BP 157/75
[2018-08-02 00:07] VITALS: BP 127/61
[2018-08-02 04:00] VITALS: BP 184/70
[2018-08-02 05:54] LABS: BASOPHILS 0.2 % (0-2); EOSINOPHILS 0.9 % (0-7); HEMATOCRIT 25.6 % (42.0-54.0); HEMOGLOBIN 8.2 g/dL (13.5-17.5); IMMATURE GRANULOCYTES 0.3 % (0-5); LYMPHOCYTES 11.6 % (15-50); MCH 29.3 pg (26.0-34.0); MCV 91.4 fL (80.0-100.0); MEAN PLATELET VOLUME 9.4 fL (7.4-10.4); MONOCYTES 9.6 % (2-11); NEUTROPHILS 77.4 % (40-80); PLATELET COUNT 292 10x3/uL (130-400); RDW 14.1 % (11.5-14.5); WBC 10.2 10x3/uL (4.8-10.8)
[2018-08-02 06:38] LABS: ALBUMIN 1.7 g/dL (3.4-5.0); ANION GAP 14.8 mmol/L (8-16); BILIRUBIN - TOTAL 0.69 mg/dL (0.2-1.3); CALCIUM 8.8 mg/dL (8.5-10.1); CARBON DIOXIDE 26.7 mmol/L (21.0-32.0); CREATININE - SERUM 3.3 mg/dL (0.6-1.3); POTASSIUM - SERUM 3.5 mmol/L (3.5-5.1); PROTEIN - SERUM 7.8 g/dL (6.4-8.2)
[2018-08-02 09:21] VITALS: BP 180/81
[2018-08-02 11:51] VITALS: BP 165/75
[2018-08-02 16:35] VITALS: BP 164/82
[2018-08-02 20:00] VITALS: BP 118/49
[2018-08-03 00:04] VITALS: BP 179/82
[2018-08-03 04:00] VITALS: BP 151/67
[2018-08-03 07:40] VITALS: BP 158/74
[2018-08-03 15:16] VITALS: BP 146/77
[2018-08-03 21:00] VITALS: BP 144/77
[2018-08-04] VITALS: BP 101/53
[2018-08-04 05:42] VITALS: BP 156/67
[2018-08-04 06:50] LABS: BASOPHILS 0.2 % (0-2); HEMATOCRIT 26.8 % (42.0-54.0); HEMOGLOBIN 8.6 g/dL (13.5-17.5); IMMATURE GRANULOCYTES 0.3 % (0-5); LYMPHOCYTES 15.1 % (15-50); MCH 29.4 pg (26.0-34.0); MCHC 32.1 g/dL (31.0-37.0); MCV 91.5 fL (80.0-100.0); MEAN PLATELET VOLUME 9.2 fL (7.4-10.4); MONOCYTES 13.9 % (2-11); NEUTROPHILS 69.5 % (40-80); PLATELET COUNT 262 10x3/uL (130-400); RBC 2.93 10x6/uL (4.20-6.10); RDW 14.1 % (11.5-14.5); WBC 8.9 10x3/uL (4.8-10.8)
[2018-08-04 06:51] LABS: ANION GAP 15.4 mmol/L (8-16); CALCIUM 8.7 mg/dL (8.5-10.1); CARBON DIOXIDE 26.4 mmol/L (21.0-32.0); CREATININE - SERUM 3.2 mg/dL (0.6-1.3); PHOSPHOROUS 5.5 mg/dL (2.5-4.9); POTASSIUM - SERUM 3.8 mmol/L (3.5-5.1)
[2018-08-04 07:22] VITALS: BP 147/74
[2018-08-04 11:25] VITALS: BP 166/78
[2018-08-04 15:05] VITALS: BP 153/73
[2018-08-04 20:56] VITALS: BP 142/60
[2018-08-05 04:16] LABS: BASOPHILS 0.2 % (0-2); EOSINOPHILS 1.4 % (0-7); HEMATOCRIT 26.9 % (42.0-54.0); HEMOGLOBIN 8.7 g/dL (13.5-17.5); IMMATURE GRANULOCYTES 0.3 % (0-5); MCH 29.4 pg (26.0-34.0); MCHC 32.3 g/dL (31.0-37.0); MCV 90.9 fL (80.0-100.0); MEAN PLATELET VOLUME 9.4 fL (7.4-10.4); NEUTROPHILS 70.1 % (40-80); PLATELET COUNT 292 10x3/uL (130-400); RBC 2.96 10x6/uL (4.20-6.10); RDW 13.9 % (11.5-14.5); WBC 8.7 10x3/uL (4.8-10.8)
[2018-08-05 04:31] LABS: ANION GAP 13.5 mmol/L (8-16); CALCIUM 8.8 mg/dL (8.5-10.1); CARBON DIOXIDE 28.1 mmol/L (21.0-32.0); CREATININE - SERUM 3.4 mg/dL (0.6-1.3); PHOSPHOROUS 5.4 mg/dL (2.5-4.9); POTASSIUM - SERUM 3.6 mmol/L (3.5-5.1)
[2018-08-05 06:09] VITALS: BP 188/78
[2018-08-05 07:53] VITALS: BP 133/74
[2018-08-05] MEDS ORDERED: CEFAZOLIN2 GM/50 ML IV ×2 (10:17→10:18)
== END 2018-08-05 15:11 | disposition home or self-care (01) | DRG 314 ==
LOC: D.M2 00:27 → D.ICU 03:39 → D.SDCHOLD 08:45 → D.M2 08:48 → D.ICU 07-21 20:13 → D.M2 07-23 16:23
PROVIDERS: Internal Medicine; Internal Medicine Nephrology; Internal Medicine Pulmonary Disease; Surgery
PROC: 02PY33Z Removal of Infusion Device from Great Vessel, Percutaneous Approach (ICD-10-PCS; 2018-07-16)
PROC: 05HM33Z Insertion of Infusion Device into Right Internal Jugular Vein, Percutaneous Approach (ICD-10-PCS; 2018-07-21)
PROC: B5191ZA Fluoroscopy of Inferior Vena Cava using Low Osmolar Contrast, Guidance (ICD-10-PCS; 2018-08-03)
PROC: 02PY33Z Removal of Infusion Device from Great Vessel, Percutaneous Approach (ICD-10-PCS; 2018-08-03)
PROC: 0JH63XZ Insertion of Tunneled Vascular Access Device into Chest Subcutaneous Tissue and Fascia, Percutaneous Approach (ICD-10-PCS; principal; 2018-08-03 08:00)
DX: T82.7XXA Infection and inflammatory reaction due to other cardiac and vascular devices, implants and grafts, initial encounter (principal); N18.6 End stage renal disease; J96.01 Acute respiratory failure with hypoxia; G93.41 Metabolic encephalopathy; I33.0 Acute and subacute infective endocarditis; I12.0 Hypertensive chronic kidney disease with stage 5 chronic kidney disease or end stage renal disease; R78.81 Bacteremia; E87.1 Hypo-osmolality and hyponatremia; J81.1 Chronic pulmonary edema; Y83.8 Other surgical procedures as the cause of abnormal reaction of the patient, or of later complication, without mention of misadventure at the time of the procedure; E11.22 Type 2 diabetes mellitus with diabetic chronic kidney disease; Z99.2 Dependence on renal dialysis; E87.6 Hypokalemia; D63.1 Anemia in chronic kidney disease; G47.30 Sleep apnea, unspecified; B95.61 Methicillin susceptible Staphylococcus aureus infection as the cause of diseases classified elsewhere; M54.30 Sciatica, unspecified side; M25.561 Pain in right knee

== ENCOUNTER 2018-10-22 07:49 | Day surgery (SDC) | payer MEDICARE ==
[~2018-10-22] VITALS: Ht 170.2 cm; Wt 88.5 kg
--- NOTE | ~2018-10-22 | OP ---
PATIENT NAME: KYLEE WHITE MEDICAL RECORD: [id number] :58 LOCATION:[facility] ADMISSION DATE: SURGEON: SANTANA CUELLO MD DATE OF OPERATION: 10/22/2018 REFERRED BY: Emily Keating MD PREOPERATIVE DIAGNOSES: End-stage renal disease and dependence on hemodialysis and mechanical complications of left radiocephalic Grabiel AV fistula. POSTOPERATIVE DIAGNOSES: End-stage renal disease and dependence on hemodialysis and mechanical complications of left radiocephalic Grabiel AV fistula. OPERATION PERFORMED: Ultrasound-guided access of left arm AV fistula and of the distal radial artery, fistulogram, AngioJet mechanical thrombolysis and balloon angioplasty of a severe stenosis of the juxta-anastomotic segment of the fistula and other areas of stenosis at the arterial anastomosis and in the body of the fistula. Also direct ultrasound-guided cannulation of the radial artery distal to the arterial anastomosis and performance of a radial arteriogram from that cannulation, which revealed the location of the highly strictured arterial anastomosis and JA segment. Then also, selective placement of a catheter in the radial artery through the dialysis circuit with balloon angioplasty of a stenosis of the mid radial artery of about 60%. This was remote from the arterial anastomosis at about mid radial artery level and then also balloon angioplasty of the anastomosis and JA segment. I also performed open ligation of a large diverting collateral on the dorsum of the distal forearm just proximal to the wrist. The vein there was ligated multiply with Vicryl ties and Hemoclips and transected. The wound longitudinal incision about 2 cm in length was closed with interrupted simple 4-0 Prolene sutures. At this point, the fistula function was poor by palpation with diminished bruit and color flow Duplex ultrasound examination demonstrated extensive thrombus had formed within the body of the graft. A second 6-Dominican introducer was placed distally in the fistula directed proximally and over a guidewire I performed AngioJet thrombolysis of this nonocclusive, but merely a partially and near total occlusion thrombus. Repeated contrast injections eventually revealed a fistula without obstruction and with rather brisk flow. The vein was on the order of 6 mm in diameter, having been dilated with a 7-mm angioplasty balloon. The arterial anastomosis and JA segment were dilated with a 5 mm angioplasty balloon. The 6-Dominican introducer sheaths were removed and hemostasis obtained at those sites with [id number] 4-0 Prolene sutures and a light period of direct pressure. Dressings of Ultrafoam, Tegaderm, and Cavilon were applied. The incision on the dorsum of the forearm was dressed with Maxorb Ag, Tegaderm, and Cavilon skin prep. The patient was awakened and with good fistula function taken to the recovery room. PLAN: I plan for Mr. White to be discharged to home today and have him come back to see me in my office in about a week or 10 days. Hopefully, he will be able to begin dialysis with his fistula within a couple of weeks and hopefully he will very rapidly proceed to a point where his tunneled catheter can be removed. TRANSINT:[id number] Voice Confirmation ID: [id number] DOCUMENT ID: [id number] OPERATIVE REPORT [id number] KYLEE WHITE JAMES MD at 0908 CC: EMILY KEATING MD [id number] DICTATION DATE: 10/22/18 1651 IP LITIGATION ASSOCIATE: 10/22/18 2327 [facility] 10/22/18 [id number] [place] [address]
[~2018-10-22 07:49] MED LIST changes: +ASPIRIN325 MG PO; +CEFAZOLIN2 GM/50 ML IV; +FISH OIL 1,2001 CAP PO; +HUMALOG 30100 UNITS/ SC
[2018-10-22 08:16] LABS: BASOPHILS 0.4 % (0-2); EOSINOPHILS 7.9 % (0-7); HEMOGLOBIN 11.4 g/dL (13.5-17.5); IMMATURE GRANULOCYTES 0.2 % (0-5); LYMPHOCYTES 19.9 % (15-50); MCH 29.6 pg (26.0-34.0); MCHC 30.8 g/dL (31.0-37.0); MCV 96.1 fL (80.0-100.0); MEAN PLATELET VOLUME 9.2 fL (7.4-10.4); MONOCYTES 12.1 % (2-11); NEUTROPHILS 59.5 % (40-80); RBC 3.85 10x6/uL (4.20-6.10); WBC 8.6 10x3/uL (4.8-10.8)
[2018-10-22 08:21] LABS: PLATELET COUNT 189 10x3/uL (130-400)
[2018-10-22 08:23] LABS: ANION GAP 14.7 mmol/L (8-16); CALCIUM 8.9 mg/dL (8.5-10.1); CARBON DIOXIDE 27.3 mmol/L (21.0-32.0); CREATININE - SERUM 3.7 mg/dL (0.6-1.3)
[2018-10-22 08:28] LABS: APTT 29.5 SECONDS (22.8-39.4); INR 1.16 (0.85-1.17); PROTIME 14.3 SECONDS (11.6-15.0)
[2018-10-22] MEDS ORDERED: NEURONTIN 300300 MG PO (09:01)
[2018-10-22 09:06] VITALS: Ht 170.2 cm; Wt 88.5 kg
== END 2018-10-22 18:50 | disposition home or self-care (01) ==
LOC: D.OPS 07:49
PROVIDERS: Surgery
DX: T82.868A Thrombosis due to vascular prosthetic devices, implants and grafts, initial encounter (principal); N18.6 End stage renal disease; Z99.2 Dependence on renal dialysis; Z01.812 Encounter for preprocedural laboratory examination; Z01.811 Encounter for preprocedural respiratory examination; Z01.810 Encounter for preprocedural cardiovascular examination